=== PATIENT | female | born 1980 | race Caucasian/White ===

== ENCOUNTER 2018-10-11 13:59 | Day surgery (SDC) | payer MEDICAID ==
[~2018-10-11] VITALS: Ht 160 cm; Wt 63.6 kg
[2018-10-11] VITALS (12 sets, daily range): BP systolic 99–123; BP diastolic 58–72; PULSE 54–86; RESP 15–22; Ht 160 cm; Wt 63.6 kg
--- NOTE | 2018-10-11 14:37 | PREAC ---
Date/Time of Note Date/Time of Note DATE: 10/11/18 TIME: 14:36 Anesthesia Eval and Record Evaluation Time Pre-Procedure Interview DATE: 10/11/18 TIME: 14:36 Age 38 Sex female NPO: 8 hrs Preoperative diagnosis sterilization Planned procedure laparoscopic bilateral tubal ligation Past Medical History Past Medical History: None Surgery & Anesthesia Issues No known issue Meds Anticoagulation: No Beta Iveth within 24 hr: No Reason Beta Iveth not given: Pt. not on B-Iveth Meds reviewed: Yes Allergies Coded Allergies: No Known Allergy (Unverified , 10/08/18) Allergies Reviewed: Yes Labs/Studies Labs Reviewed: Reviewed by anesthesiologist test: Negative Pre-procedure Exam Airway: Adequate mouth opening, Adequate thyromental dist Mallampati: Mallampati II Teeth: Normal Lung: Normal Heart: Normal ASA Physical Status ASA physical status: 1 Emergency: None Planned Anesthetic General/MAC: ETT Planned Pain Management Parenteral pain med Pre-operative Attestations Prior to commencing anesthesia and surgery, the patient was re-evaluated, there was verification of: *The patient's identity *The results of appropriate recent lab work and preoperative vital signs *The above evaluation not changing prior to induction *Anesthetic plan, risk benefits, alternative and complications discussed with patient/family; questions answered; patient/family understands, accepts and wishes to proceed. JOSE DANIEL ALVAREZ Oct 11, 2018 14:37
[2018-10-11] MEDS ORDERED: LACTATED RINGER'S 1,000 ML IV SCH (15:30)
[2018-10-11] MEDS ORDERED: ROCURONIUM 50 MG INJ ONE (15:35)
[2018-10-11] MEDS ORDERED: LIDOCAINE 2% (SDV) 5 ML INJ ONE (15:35)
[2018-10-11] MEDS ORDERED: PROPOFOL 100 ML ONE (15:35)
[2018-10-11] MEDS ORDERED: FENTAnyl 50 MCG/ML VIAL ONE (15:35)
--- NOTE | 2018-10-11 15:43 | HP ---
Date/Time of Note Date/Time of Note DATE: 10/11/18 TIME: 15:42 Assessment/Plan VTE Prophylaxis Risk score (from Nsg)>0 risk: 1 SCD applied (from Nsg): Yes Pharmacological prophylaxis: NA/contraindicated Pharm contraindication: low risk/ambulating Lines/Catheters IV Catheter Type (from Nrsg): Peripheral IV Assessment/Plan Assessment/Plan Multiparity with desire for sterilization Proceed with laparoscopic tubal ligation versus mini lap tubal ligation Results 24hrs Laboratory Tests Test 10/11/18 14:50 White Blood Count Pending Red Blood Count Pending Hemoglobin Pending Hematocrit Pending Mean Corpuscular Volume Pending Mean Corpuscular Hemoglobin Pending Mean Corpuscular Hemoglobin Concent Pending Red Cell Distribution Width Pending Platelet Count Pending Mean Platelet Volume Pending HPI/ROS Admit Date/Time Admit Date/Time October 11, 2018 Hx of Present Illness 38-year-old female para 2 last. Was months ago on Depo-Provera injection admitted for voluntary sterilization ROS Currently does not have major complaints Constitutional: no complaints, improved Eyes: no complaints ENT: no complaints Respiratory: no complaints Cardiovascular: no complaints Gastrointestinal: no complaints Genitourinary: no complaints Musculoskeletal: no complaints Skin: no complaints Neurologic: no complaints Endocrine: no complaints Lymphatic: no complaints Psychological: no complaints, nl mood/affect Immunologic: no complaints PMH/Family/Social Past Medical History Medical History: no pertinent history Medications Current Medications Lactated Ringer's 1,000 ml @ 0 mls/hr Q0M IV ; Start 10/11/18 at 15:30 Coded Allergies: No Known Allergy (Unverified , 10/08/18) Past Surgical History Past Surgical Hx: no surgical history Family History Significant Family History: no pertinent family hx Social History Alcohol Use: none Smoking Status: Never smoker Drug Use: none Exam/Review of Systems Vital Signs Vitals Vital Signs Date Temp Pulse Resp B/P (MAP) Pulse Ox O2 O2 Flow FiO2 Time Delivery Rate 10/11/18 98.7 67 16 107/66 98 Room Air 15:13 (80) Exam Exam Patient does not seem to be in any acute distress Constitutional: alert, oriented, well developed Psych: no complaints, nl mood/affect Head: normocephalic, atraumatic Eyes: nl conjunctiva, EOMI, nl lids, nl sclera, PERRL ENMT: nl external ears & nose, nl lips & teeth, nl nasal mucosa & septum Neck: supple, non-tender Respiratory: clear to auscultation, normal air movement Cardiovascular: regular rate and rhythm, nl pulses Gastrointestinal: soft, nl liver, spleen, non-tender Musculoskeletal: nl extremities to inspection Extremities: normal pulses Neurological: [employer] MAIL CL[employer] II-XII intact, nl mental status, nl speech, nl strength Skin: nl turgor; No rash or lesions Lymph: nl lymph nodes MOHAMUD POWELL MD Oct 11, 2018 15:43
[2018-10-11] MEDS ORDERED: KETOROLAC 30 MG INJ ONE (16:14)
[2018-10-11] MEDS ORDERED: DEXAMETHASONE 4 MG/ML 5 ML INJ ONE (16:21)
[2018-10-11] MEDS ORDERED: ONDANSETRON 4 MG INJ ONE (16:21)
[2018-10-11] MEDS ORDERED: CEFAZOLIN 1 GM INJ ONE (16:27)
[2018-10-11] MEDS ORDERED: BUPIVACAINE 0.25%/EPI (SDV) 30 ML INJ ONE (16:30)
[2018-10-11] MEDS ORDERED: ACETAMINOPHEN 500 MG TAB PO STA (17:02)
[2018-10-11] MEDS ORDERED: KETOROLAC 60 MG INJ IM STA (17:02)
[2018-10-11] MEDS ORDERED: GLYCOPYRROLATE 0.4 MG INJ ONE (17:05)
[2018-10-11] MEDS ORDERED: NEOSTIGMINE 3 MG/3 ML SYRINGE ONE (17:05)
--- NOTE | 2018-10-11 17:08 | OPR ---
Operative Report Planned Procedure Free Text/Dictation 38-year-old female for sterilization procedure Procedure date Oct 11, 2018 Procedure(s) Bilateral tubal fulguration using the laparoscope meningitis Performed by see signature line Shoes Salesperson: KASI ROYAL MD Anesthesiologist: JOSE DANIEL ALVAREZ Pre-procedure diagnosis Multiparity with desire for sterilization [id number] Anesthesia Type: [id number] general Post-Procedure Post-procedure diagnosis Status post bilateral tubal fulguration Findings Normal-appearing right and left fallopian tubes and ovaries Estimated Blood Loss: minimal Specimen(s) none Grafts/Implant(s) none Complication(s) none Pt Condition post procedure: stable Disposition: PACU Procedure Description The patient was placed on the OR table in the supine position. General anesthesia was induced. The patient was turned into lithotomy position for vaginal and laparoscopic procedure specifically. Perineal, vaginal, and abdominal area were then prepped with Betadine and draped for a usual l aparoscopic procedure and a vaginal procedure. A Crandall catheter was then inserted into urinary bladder under aseptic condition in operating room and under satisfactory anesthesia, a small speculum was inserted into vagina. Anterior lip of the cervix was secured with a tenaculum. Cervix was brought down to operative field. It was progressively dilated to #6 Hegar. A HUMI elevator was inserted into cervical canal and afterwards uterine cavity. After insufflation of the tube all the other instruments were removed from vaginal cavity. After changing gloves, turning to abdominal side, a small incision was placed just below belly button 0.5 cm in length. A 0.5 cm trocar was introduced inside the incision. The trocar was blunt and pointing toward the uterine dome. The trocar was easily inserted inside the abdominal. A laparoscope was then inserted into the abdominal cavity, making sure the correct cavity was entered. Intra-abdominal cavity was insufflated with CO2. Under direct visualization a small incision was made a 0.5 cm in length about 2 to 3 fingerbreadths above and parallel to the symphysis pubis. A 0.5 cm trocar was then introduced inside the incision. Under direct visualization the second probe was also inserted into abdominal cavity easily. The uterus and fallopian tubes were easily identified. Right fallopian tube was approached first and at least 5 cm of the tube was adequately fulgurated, making sure no live tissue was left in between. The same procedure was done on the left side. Serious care was taken to avoid bowel, bladder, or other intra-abdominal organ injury. At this point, procedure was terminated. The trocar incision sites from inside the abdomen on either side were observed. No bleeding was observed. After removing the laparoscope, the abdomen was desufflated to its normal position. Afterwards, all of the trocar sleeves were removed. Abdominal incisions were closed using hemant. The HUMI was then discontinued. Also, Crandall was taken out. The patient was returned to supine position. Estimated blood loss was less than 5 mL. The patient tolerated the procedure very well and was transferred to postanesthesia recovery room in stable and good condition. MOHAMUD POWELL MD Oct 11, 2018 17:08
--- NOTE | 2018-10-11 17:13 | PAC ---
Date/Time of Note Date/Time of Note DATE: 10/11/18 TIME: 17:12 Post-Anesthesia Notes Post-Anesthesia Note Last documented vital signs Vital Signs Date Temp Pulse Resp B/P (MAP) Pulse Ox O2 O2 Flow FiO2 Time Delivery Rate 10/11/18 98.7 67 16 107/66 98 Room Air 1712 (80) Activity: WNL Respiratory function: WNL Cardiovascular function: WNL Mental status: Baseline Pain reasonably controlled: Yes Hydration appropriate: Yes Nausea/Vomiting absent: Yes JOSE DANIEL ALVAREZ Oct 11, 2018 17:13
[2018-10-11] MEDS: FENTAnyl 50 MCG/ML VIAL IV PRN ×2 (17:24→17:41)
[2018-10-11] MEDS ORDERED: hydrALAzine 20 MG INJ IV PRN (17:30)
[2018-10-11] MEDS ORDERED: METOCLOPRAMIDE 10 MG INJ IV PRN (17:30)
[2018-10-11] MEDS ORDERED: MEPERIDINE 25 MG INJ IV PRN (17:30)
[2018-10-11] MEDS ORDERED: FENTAnyl 50 MCG/ML VIAL IV PRN ×2 (17:30)
[2018-10-11] MEDS ORDERED: MIDAZOLAM 1 MG/ML 2 ML INJ IV PRN (17:30)
[2018-10-11] MEDS ORDERED: HYDROmorphONE 1 MG/5 ML IV SYRINGE IV PRN ×3 (17:30)
[2018-10-11] MEDS ORDERED: KETOROLAC 30 MG INJ IV PRN (17:30)
[2018-10-11] MEDS ORDERED: BUTORPHANOL 2 MG INJ IM ONE (17:30)
[2018-10-11] MEDS ORDERED: DIPHENHYDRAMINE 50 MG INJ IV PRN (17:30)
[2018-10-11] MEDS ORDERED: ALBUTEROL 0.083% (NEB) 2.5 MG/3 ML AMP HHN PRN (17:30)
[2018-10-11] MEDS ORDERED: DOXYCYCLINE 100 MG TAB PO ONE (17:30)
[2018-10-11] MEDS ORDERED: ONDANSETRON 4 MG INJ IV PRN (17:30)
[2018-10-11] MEDS ORDERED: LABETALOL HCL 20MG INJ IV PRN (17:30)
[2018-10-11] MEDS ORDERED: EPHEDrine 25 MG/5 ML SYG IV PRN (17:30)
[2018-10-11] MEDS ORDERED: KETOROLAC 30 MG INJ IM STA (17:31)
== END 2018-10-11 18:50 | disposition home or self-care (01) ==
LOC: SDS 13:59
PROVIDERS: ATTEND Obstetrics & Gynecology
DX: Z30.2 Encounter for sterilization (principal)
CPT/HCPCS: 58670; 84702; 85025; 85610; 85730; J0595; J0690; J1100; J1200; J1885; J2405; J2710; J3010; Z7512; Z7610